=== PATIENT | female | born 1950 | race Caucasian/White ===

== ENCOUNTER 2016-06-11 07:37 | Emergency (ER) | payer OTHER ==
[~2016-06-11] VITALS: Wt 78.0 kg
[~2016-06-11 07:37] MED LIST: BACTROBAN OINT22 GM PO; FAMOTIDINE20 M1 PO; NORCO 5-325 TA1 EACH PO; NOVOLOG10 ML SC; SILVADENE,SSD C50 GM PO; TORADOL10 MG PO; VICTOZA6 MG/ML SC
[2016-06-11] MEDS ORDERED: IBU800 M1 PO (07:44)
[2016-06-11] MEDS ORDERED: LANTUS100 U/ML SC (07:45)
[2016-06-11] MEDS ORDERED: CYCLOBENZAPRINE10 MG PO (07:46)
[2016-06-11] MEDS ORDERED: PRAVASTATIN SOD40 MG PO (07:46)
[2016-06-11] MEDS ORDERED: VITAMIN D5000 I3 PO (07:46)
[2016-06-11 08:29] LABS: BASO % 0.3 % (0.0-1.0); EOS % 0.3 % (1.0-4.0); HEMATOCRIT 38.5 % (37.0-47.0); HEMOGLOBIN 13.4 g/dl (12.0-16.0); LYMPH # 0.8 10*3/uL (1.3-4.4); LYMPH % 10.5 % (27.0-41.0); MEAN CELL VOLUME 91.9 fl (81.0-99.0); MEAN CORPUSCULAR HGB CONC 34.8 g/dl (33.0-37.0); MEAN PLATELET VOLUME 10.7 fl (9.6-12.3); MONO # 0.3 10*3/uL (0.1-1.0); MONO % 3.7 % (3.0-9.0); NEUT # 6.4 10*3/uL (2.3-7.9); NEUT % 84.8 % (47.0-73.0); PLATELET COUNT AUTOMATED 141 10*3/uL (130-400); RED BLOOD COUNT 4.19 10*6/uL (4.10-5.10); RED CELL DISTRI WIDTH 12.3 % (0-14.5); WHITE BLOOD COUNT 7.5 10*3/uL (4.8-10.8)
[2016-06-11 08:41] LABS: BUN 18 mg/dl (7-24); CARBON DIOXIDE 28 mmol/L (21-32); CHLORIDE 106 mmol/L (98-107); EST GLOM FILT AFRICAN AMERICAN > 60 ml/min; GLUCOSE 164 mg/dL (65-99); POTASSIUM 3.9 mmol/L (3.5-5.1); SODIUM 143 mmol/L (136-145)
[2016-06-11 09:03] LABS: BILIRUBIN NEGATIVE (NEGATIVE); BLOOD NEGATIVE (NEGATIVE); CLARITY CLEAR (CLEAR); COLOR YELLOW (YELLOW); GLUCOSE NEGATIVE (NEGATIVE); KETONE TRACE (NEGATIVE); LEUKO ESTERASE 1+ (NEGATIVE); NITRITE NEGATIVE (NEGATIVE); PROTEIN NEGATIVE (NEGATIVE); SPECIFIC GRAVITY 1.025 (1.005-1.030); UROBILINOGEN 0.2 E.U./dl (0.2-1.0)
[2016-06-11 09:12] LABS: BACTERIA 1+; URINE REFLEX COMMENT YES (NO); WBC 16-20 wbc/hpf (0-5)
[2016-06-11] MEDS ORDERED: Meclizine25 MG PO (09:32)
[2016-06-11] MEDS ORDERED: LEVAQUIN250 M1 PO (09:32)
== END 2016-06-11 09:36 | disposition home or self-care (01) ==
LOC: ED 07:37
PROVIDERS: Emergency Medicine
DX: N39.0 Urinary tract infection, site not specified (principal); H83.09 Labyrinthitis, unspecified ear; E11.9 Type 2 diabetes mellitus without complications; Z90.710 Acquired absence of both cervix and uterus; Z98.890 Other specified postprocedural states; Z88.1 Allergy status to other antibiotic agents

== ENCOUNTER → 2016-06-16 | Outpatient (CLI) | payer OTHER ==
[~2016-06-16] MED LIST changes: +CYCLOBENZAPRINE10 MG PO; +IBU800 M1 PO; +LANTUS100 U/ML SC; +LEVAQUIN250 M1 PO; +Meclizine25 MG PO; +PRAVASTATIN SOD40 MG PO; +VITAMIN D5000 I3 PO
== END | disposition home or self-care (01) ==
LOC: MRI 08:48
DX: M75.81 Other shoulder lesions, right shoulder (principal); R20.2 Paresthesia of skin

== ENCOUNTER → 2016-10-29 | Outpatient (CLI) | payer OTHER | END | disposition home or self-care (01) | LOC: RAD 09:16 | DX: J32.0 Chronic maxillary sinusitis (principal); J34.89 Other specified disorders of nose and nasal sinuses ==

== ENCOUNTER → 2016-12-31 | Outpatient (CLI) | payer OTHER ==
[~2016-12-31] MED LIST changes: +24 HOUR ALLER15.8 ML NAS; +LANTUS SOL100 UNIT/1 SC; -LANTUS100 U/ML SC; +LOSARTAN POTASS25 M1 PO; +MELOXICAM15 MG PO
[2016-12-31 18:22] LABS: BASO % 0.6 % (0.0-1.0); EOS # 0.2 10*3/uL (0.0-0.4); EOS % 3.1 % (1.0-4.0); HEMOGLOBIN 12.9 g/dl (12.0-16.0); LYMPH % 30.9 % (27.0-41.0); MEAN CELL VOLUME 92.3 fl (81.0-99.0); MEAN CORPUSCULAR HGB 32.2 pg (27.0-31.0); MEAN CORPUSCULAR HGB CONC 34.9 g/dl (33.0-37.0); MEAN PLATELET VOLUME 11.4 fl (9.6-12.3); MONO # 0.6 10*3/uL (0.1-1.0); MONO % 8.6 % (3.0-9.0); NEUT # 3.7 10*3/uL (2.3-7.9); NEUT % 56.3 % (47.0-73.0); PLATELET COUNT AUTOMATED 142 10*3/uL (130-400); RED BLOOD COUNT 4.01 10*6/uL (4.10-5.10); RED CELL DISTRI WIDTH 12.4 % (0-14.5); WHITE BLOOD COUNT 6.5 10*3/uL (4.8-10.8)
[2016-12-31 18:39] LABS: HEMOGLOBIN A1c 6.3 % (4.8-5.6)
[2016-12-31 18:41] LABS: ALBUMIN 3.6 gm/dl (3.1-4.5); ALKALINE PHOSPHATASE 102 U/L (45-117); BILIRUBIN, TOTAL 0.4 mg/dl (0.2-1.0); BUN 15 mg/dl (7-24); CARBON DIOXIDE 27 mmol/L (21-32); CHLORIDE 108 mmol/L (98-107); EST GLOM FILT AFRICAN AMERICAN > 60 ml/min; GLUCOSE 112 mg/dL (65-99); POTASSIUM 3.5 mmol/L (3.5-5.1); SGOT/AST 29 IU/L (3-35); SGPT/ALT 45 U/L (12-78); SODIUM 142 mmol/L (136-145); TOTAL PROTEIN 6.3 gm/dL (6.4-8.2)
== END | disposition home or self-care (01) ==
LOC: LAB 10:11
PROVIDERS: Orthopaedic Surgery
DX: Z01.818 Encounter for other preprocedural examination (principal); M75.101 Unspecified rotator cuff tear or rupture of right shoulder, not specified as traumatic; M19.011 Primary osteoarthritis, right shoulder; M25.811 Other specified joint disorders, right shoulder; I10 Essential (primary) hypertension; E11.9 Type 2 diabetes mellitus without complications

== ENCOUNTER → 2017-01-06 | Day surgery (SDC) | payer OTHER ==
[2017-01-06] VITALS (11 sets, daily range): BP systolic 111–148; BP diastolic 48–85
[~2017-01-06] VITALS: Ht 162.5 cm; Wt 81.6 kg
[~2017-01-06] MED LIST changes: +Percocet 325 MG1 TAB PO; +ZOFRAN4 MG PO
--- NOTE | ~2017-01-06 | O ---
[place], [place] OPERATIVE NOTE NAME: RUMA CORREA [facility] #: [id number] UNIT #: [id number] ROOM: DOCTOR: RAQUEL WAY DO BIRTHDATE: [birth year] DOS: 01/06/2017 PREOPERATIVE DIAGNOSES: Right shoulder rotator cuff tear with acromioclavicular arthritis and impingement. POSTOPERATIVE DIAGNOSES: Right shoulder rotator cuff tear with acromioclavicular arthritis and impingement with calcific tendinitis. OPERATIVE PROCEDURE: Right shoulder rotator cuff repair with subacromial decompression and Paulo procedure. SURGEON: Raquel Way DO. COMMUNITY DIRECTOR: Nick Galvez. INDICATIONS: The patient is an 66-year-old female with a history of right shoulder pain and disability, which has been unrelieved with conservative care. Physical exam and MRI indicated rotator cuff tear with AC degenerative changes and impingement. The risks and benefits of the procedure were explained to the patient preoperatively. Preoperative labs and x-rays were obtained. PROCEDURE IN DETAIL: The right arm was marked in the holding area. The patient was brought to the operative suite. General anesthetic with endotracheal intubation was performed. The patient was placed in a modified beach chair position utilizing the shoulder table. The patient received Ancef 2 grams IV piggyback. Timeout was performed. The right shoulder was prepped and draped in the usual orthopedic fashion. The landmarks were identified and marked with a marking pen. A diagonal incision was marked between the anterior acromion and the coracoid process. The area was injected with Marcaine 0.5% with epinephrine. The incision was made sharply with a scalpel. Subcutaneous tissue was spread down to the deltoid fascia. Deltoid fascia was divided along its fibers and retracted. The deltoid was released from the anterior acromion. Coracoacromial ligament was incised. The acromioclavicular joint was identified. There was noted to be significant calcification within this region. The distal clavicle was cleared of soft tissue. The oscillating saw was used to remove the distal 1 cm of the distal clavicle. The anterior acromion was removed using an osteotome. The undersurface was smoothed using a handheld rasp. The area was copiously irrigated with normal saline. The deltoid and subacromial bursa was debrided. The full thickness tear was noted in the supraspinatus tendon. There was noted to be calcification within this area. This was debrided with the rongeur. The area was copiously irrigated with normal saline. The rotator cuff was repaired with a scorpion suture passer, creating an inverted mattress suture at the level of the tear and a BioComposite SwiveLock for attachment. This was performed using the punch, followed by manual placement of the SwiveLock. The sutures were cut with a scalpel. The repair was reinforced with #2 Orthocord. The cuff repair was found to be adequate. The area was evaluated for any further bony [place], [place] OPERATIVE NOTE NAME: RUMA CORREA UNIT #: [id number] ROOM: DOCTOR: RAQUEL WAY DO BIRTHDATE: [birth year] debris and further rasping was performed of the distal clavicle and acromion. The area was copiously irrigated with normal saline. The deltoid was repaired and returned to the acromial region utilizing #1 Ethibond, which was placed through the anterior acromion as well. The acromioclavicular joint was repaired using 0 Ethibond. The longitudinal division within the deltoid was repaired using 2-0 Vicryl, repairing the fascial layer. A 2-0 Vicryl was used to close the subcutaneous layer, followed by skin kvaon. The incision and the joint were then injected with Marcaine 0.5% with epinephrine. Xeroform, 4 x 4s, ABD and Tegaderm were used to complete the dressing and the patient was placed in a sling with an abduction pillow. The anesthetic was reversed. The patient was extubated and taken to the recovery room in satisfactory condition. Sponge and needle count correct. ESTIMATED BLOOD LOSS: 50 mL. DRAINS: None. PACKING: None. COMPLICATIONS: None. SPECIMENS: The anterior acromion and distal clavicle with calcified soft tissue. FINDINGS: Right shoulder rotator cuff tear, full thickness supraspinatus, subacromial impingement, acromioclavicular joint arthritis, calcification of the soft tissues. RAQUEL MEAGHAN, DO CM:OPRECORD:OPERATIVE NOTE [id number] DO 01/06/17 1213 interface
== END | disposition home or self-care (01) ==
LOC: SDC 12-14 10:15
DX: M75.121 Complete rotator cuff tear or rupture of right shoulder, not specified as traumatic (principal); M19.011 Primary osteoarthritis, right shoulder; M75.41 Impingement syndrome of right shoulder; E11.9 Type 2 diabetes mellitus without complications; I10 Essential (primary) hypertension; Z90.710 Acquired absence of both cervix and uterus; Z98.890 Other specified postprocedural states; Z83.3 Family history of diabetes mellitus; Z82.49 Family history of ischemic heart disease and other diseases of the circulatory system; J45.909 Unspecified asthma, uncomplicated; Z79.4 Long term (current) use of insulin; Z79.899 Other long term (current) drug therapy; K21.9 Gastro-esophageal reflux disease without esophagitis

== ENCOUNTER → 2017-04-11 | Outpatient (CLI) | payer OTHER | END | disposition home or self-care (01) | LOC: ORTHO 02:47 | DX: M19.012 Primary osteoarthritis, left shoulder (principal); M16.12 Unilateral primary osteoarthritis, left hip ==

== ENCOUNTER → 2017-08-31 | Outpatient (CLI) | payer OTHER | END | disposition home or self-care (01) | LOC: ORTHO 00:22 | DX: M17.0 Bilateral primary osteoarthritis of knee (principal); M25.762 Osteophyte, left knee; M25.761 Osteophyte, right knee ==

== ENCOUNTER → 2017-10-24 | Outpatient (CLI) | payer OTHER | LOC: US 13:36 | DX: I65.23 Occlusion and stenosis of bilateral carotid arteries (principal); I10 Essential (primary) hypertension; E11.9 Type 2 diabetes mellitus without complications ==

== ENCOUNTER 2019-04-05 12:26 | Inpatient (IN) | payer OTHER, MEDICAID ==
[~2019-04-05] VITALS: Ht 162.6 cm; Wt 92.7 kg
--- NOTE | ~2019-04-05 | ST ---
[place], [place] EXERCISE STRESS TEST REPORT NAME: RUMA CORREA [facility] #: [id number] UNIT #: [id number] ROOM: 503 DOCTOR: MAI PAINTER MD BIRTHDATE: [birth year] DOS: 04/06/2019 LEXISCAN STRESS EKG REFERRING PHYSICIAN: Dr. Pelaez. INDICATION: Chest pain. The patient underwent standard protocol Lexiscan stress EKG. Baseline EKG is normal sinus rhythm, nonspecific ST-T wave changes, heart rate at rest was 93 with a blood pressure 130/68. The patient's peak heart was 114 with a blood pressure 130/76. The patient had no chest pain, no ischemic changes, no arrhythmias. SUMMARY OF FINDINGS: Unremarkable Lexiscan stress EKG. Please see separate report for perfusion scan imaging results. MAI PAINTER MD CM:STRESS:EXERCISE STRESS TEST REPORT [id number] MAI PAINTER MD
--- NOTE | ~2019-04-05 | EKG ---
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
[~2019-04-05 12:26] MED LIST changes: +VICTOZA 2-0.6 MG/0.1 SC; -VICTOZA6 MG/ML SC
[2019-04-05 12:29] VITALS: BP 160/86
--- NOTE | 2019-04-05 12:34 | NUR ---
PT NOW REPORTS SHE HAS SOME SUBSTERNAL CHEST PAIN WIT SOME SHORTNESS OF BREATH WILL PUT IN FOR ACS ORDERS
--- NOTE | 2019-04-05 12:34 | NUR ---
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 ALSO, PT DID VOMIT ONCE AND HAS HAD DIAPHORESIS, CHECKED HER GLUCOSE AND FOUND IT OVER 400 JUST PRIOR TO ARRIVAL TO [facility].
[2019-04-05 12:54] VITALS: BP 164/73
[2019-04-05 13:03] LABS: BASO % 0.2 % (0.0-1.0); EOS # 0.2 10*3/uL (0.0-0.4); EOS % 1.6 % (1.0-4.0); HEMATOCRIT 43.2 % (37.0-47.0); HEMOGLOBIN 15.2 g/dl (12.0-16.0); LYMPH # 1.7 10*3/uL (1.3-4.4); LYMPH % 17.4 % (27.0-41.0); MEAN CELL VOLUME 93.5 fl (81.0-99.0); MEAN CORPUSCULAR HGB 32.9 pg (27.0-31.0); MEAN CORPUSCULAR HGB CONC 35.2 g/dl (33.0-37.0); MONO # 0.6 10*3/uL (0.1-1.0); MONO % 6.4 % (3.0-9.0); NEUT % 73.5 % (47.0-73.0); PLATELET COUNT AUTOMATED 153 10*3/uL (130-400); RED BLOOD COUNT 4.62 10*6/uL (4.10-5.10); RED CELL DISTRI WIDTH 12.8 % (0-14.5); WHITE BLOOD COUNT 9.5 10*3/uL (4.8-10.8)
[2019-04-05 13:13] LABS: ACT PARTIAL THROMBO TIME 24.3 SECONDS (20.0-32.1); INTERNATIONAL NORM RATIO 0.9 (2.0-3.5)
[2019-04-05 13:24] LABS: ALBUMIN 3.7 gm/dl (3.1-4.5); ALKALINE PHOSPHATASE 130 U/L (45-117); BUN 15 mg/dl (7-24); CHLORIDE 104 mmol/L (98-107); CREATININE 0.65 mg/dL (0.55-1.02); LIPASE 96 U/L (73-393); POTASSIUM 3.9 mmol/L (3.5-5.1); SGOT/AST 33 IU/L (3-35); SGPT/ALT 67 U/L (12-78); SODIUM 137 mmol/L (136-145); TOTAL PROTEIN 6.9 gm/dL (6.4-8.2)
[2019-04-05 13:27] LABS: TROPONIN I < 0.015 ng/ml (<0.045)
[2019-04-05 13:51] LABS: BILIRUBIN NEGATIVE (NEGATIVE); BLOOD NEGATIVE (NEGATIVE); CLARITY CLEAR (CLEAR); COLOR YELLOW (YELLOW); GLUCOSE NEGATIVE (NEGATIVE); KETONE TRACE (NEGATIVE); LEUKO ESTERASE TRACE (NEGATIVE); NITRITE NEGATIVE (NEGATIVE); SPECIFIC GRAVITY 1.015 (1.005-1.030); UROBILINOGEN 0.2 E.U./dl (0.2-1.0)
[2019-04-05 13:59] LABS: BACTERIA TRACE
--- NOTE | 2019-04-05 14:15 | NUR ---
BED ASSIGNED, AWAITING OPPORTUNITY TO PROVIDE NURSE REPORT TO FLOOR.
--- NOTE | 2019-04-05 14:45 | NUR ---
A 68, admitted to 5E, under the services of WES Jimenez DO with a diagnosis of CHEST PAIN . Chief complaint is CHEST PAIN . Patient arrived via stretcher from ER. Monitor applied. Initial assessment completed. Vital signs taken and recorded. WES JIMENEZ DO notified of admission to the unit. Orders received. See assessment for past medical history, medications and allergies. Patient and/or family oriented to unit. [facility] visitation policy reviewed. Clothing/patient valuable form completed. ZAHRA WINTERS
[2019-04-05 14:54] VITALS: BP 152/82
[2019-04-05] MEDS ORDERED: CELEBREX100 MG PO (15:34)
--- NOTE | 2019-04-05 15:59 | NUR ---
[facility] CALLED TO THE OFFICE
[2019-04-05 16:00] VITALS: BP 164/92
[2019-04-05 17:00] VITALS: BP 158/84
--- NOTE | 2019-04-05 19:52 | NUR ---
24 HR chart check completed.
[2019-04-05 20:00] VITALS: BP 154/78
--- NOTE | 2019-04-05 20:30 | NUR ---
RESTING IN BED WITH NO ACUTE DISTRESS NOTED. RESPIRATIONS EASY. LUNGS DIMINISHED, CLEAR. PULSE OX 100% RA. CALL LIGHT WITHIN REACH. NO VOICED COMPLAINTS.
[2019-04-05] MEDS ORDERED: BASAG SOL SC (20:37)
[2019-04-05] MEDS ORDERED: GOOD NEIGHBOR L10 MG PO (20:39)
[2019-04-05] MEDS ORDERED: HUMALOG100 UNIT/1 SQ (20:39)
[2019-04-05] MEDS ORDERED: VITAMIN D31000 UNIT PO (20:40)
[2019-04-05] MEDS ORDERED: PRAVASTATIN SOD80 MG PO (20:41)
[2019-04-05] MEDS ORDERED: PROAIR RESPICL90 MCG INH (20:42)
--- NOTE | 2019-04-05 21:07 | NUR ---
DR WHITTEN CONTACTED AND INFORMED THAT MED REC WAS NOT UPDATED UPON ADMISSION PER PATIENT. MEDS REVIEWED AND UP TO DATE IN COMPUTER.
[2019-04-05] MEDS ORDERED: METOPROLOL SUCC25 M2 PO (22:07)
[2019-04-06] VITALS: BP 144/68
--- NOTE | 2019-04-06 | NUR ---
SLEEPING. NO DISTRESS NOTED. RESPIRATIONS EASY. VSS. CALL LIGHT WITHIN REACH
--- NOTE | 2019-04-06 05:25 | NUR ---
RUMA CORREA [id number] Please refer to the physician's history and physical for past medical history, comorbid conditions, and allergies. Diagnosis: DYSPNEA CHEST PAIN R/O AC M.I. MAUSEA VOMITING Junior Score: 19,LOW OR NO RISK WOUND DESCRIPTIONS: Wound Number: 1 Location of the wound: left upper arm Type of wound: surgical Thickness: Partial Size: 0.4cm x 1.8cm x <0.1cm Tunneling: none Undermining: none Sinus Tract: none Presence of Exudate: none Amount: None Color: Red Odor: None Periwound Skin Appearance: Normal Wound edges: approximated Pain (associated with wound): none at time of assessment How does patient state this happened? pt stated she had surgery a couple months ago and had a biospy done it was froze then they had to refreeze the area since they didn't get it all she stated this was done at dermatology in [facility]. she stated she has a follow up appointment but is unsure when the date is she has it written done at home Surface the patient is resting on: Isoflex SKIN PREVENTION RECOMMENDATION: 1. Pressure redistribution support surface as appropriate 2. Elevate heels 3. Remove boots/TEDS every shift and reapply 4. Head of bed 30 degrees as tolerated 5. Assess nutrition and hydration 6. Manage moisture 7. Avoid the use of containment devices while in bed 8. Use absorptive products on surfaces limit layers of linens on bed 9. Turn and reposition every 1-2 hours in bed and every 1 hour in chair as tolerated 10. Weight shifts every 15 minutes while up in chair 11. Offloading with pillows or device to keep heels elevated off bed 12. Monitor skin at least every shift 13. Inspect under medical devices twice a day
--- NOTE | 2019-04-06 06:00 | NUR ---
SLEPT THROUGHOUT NIGHT WITH NO DISTRESS NOTED. RESPIRATIONS EASY. CALL LIGHT WITHIN REACH. NO VOICED COMPLAINTS THIS SHIFT
[2019-04-06 06:27] LABS: BASO % 0.2 % (0.0-1.0); EOS # 0.2 10*3/uL (0.0-0.4); EOS % 3.4 % (1.0-4.0); HEMATOCRIT 40.4 % (37.0-47.0); HEMOGLOBIN 13.9 g/dl (12.0-16.0); LYMPH # 1.7 10*3/uL (1.3-4.4); LYMPH % 25.2 % (27.0-41.0); MEAN CELL VOLUME 94.4 fl (81.0-99.0); MEAN CORPUSCULAR HGB 32.5 pg (27.0-31.0); MEAN CORPUSCULAR HGB CONC 34.4 g/dl (33.0-37.0); MEAN PLATELET VOLUME 10.9 fl (9.6-12.3); MONO # 0.5 10*3/uL (0.1-1.0); MONO % 7.8 % (3.0-9.0); NEUT # 4.1 10*3/uL (2.3-7.9); NEUT % 62.6 % (47.0-73.0); PLATELET COUNT AUTOMATED 153 10*3/uL (130-400); RED BLOOD COUNT 4.28 10*6/uL (4.10-5.10); WHITE BLOOD COUNT 6.5 10*3/uL (4.8-10.8)
[2019-04-06 06:59] LABS: ALBUMIN 3.4 gm/dl (3.1-4.5); ALKALINE PHOSPHATASE 129 U/L (45-117); BUN 11 mg/dl (7-24); CHLORIDE 104 mmol/L (98-107); CHOLESTEROL 163 mg/dL (<200); CREATININE 0.66 mg/dL (0.55-1.02); FREE T4 1.02 ng/dl (0.76-1.46); HDL CHOLESTEROL 32 mg/dl (40-60); LDL CHOLESTEROL 89 mg/dL (9-159); PHOSPHOROUS 3.4 mg/dL (2.5-4.9); POTASSIUM 3.8 mmol/L (3.5-5.1); SGOT/AST 28 IU/L (3-35); SGPT/ALT 60 U/L (12-78); SODIUM 140 mmol/L (136-145); TOTAL PROTEIN 6.3 gm/dL (6.4-8.2); TRIGLYCERIDES 208 mg/dl (<150); VLDL CHOLESTEROL 42 mg/dL (6-40)
[2019-04-06 07:23] LABS: VITAMIN D, 25-HYDROXY 41.4 ng/mL (30-100)
--- NOTE | 2019-04-06 08:00 | NUR ---
SITTING UP AT SIDE OF BED. RESP-EASY AND REGULAR. NO C/O AT THIS TIME. CALL LIGHT IN REACH. SEE SHIFT ASSESSMENT.
--- NOTE | 2019-04-06 09:00 | NUR ---
E[employer] Refrigerator Preparer in to talk to patient. Patient states lives at home with alone. There are few steps in the home. Physician: adalgisa sarabia [facility]acy: [facility] Home health services: none Patient's level of ADLs: INDEPENDENT Patient has working utilities: all working DME: none Follow-up physician's appointment after d/c: will be made by hospitalist nurse director upon discharge Does patient want to access PORTAL?: no Discharge plan discussed with patient, she lives at home, is independent in adls and ambualtion, she states she will return home when medically stable and denies any home needs. HAMILTON VARGAS
--- NOTE | 2019-04-06 10:00 | NUR ---
RESTING IN BED. RESP-EASY AND REGULAR. NO C/O AT THIS TIME. CALL LIGHT IN REACH.
--- NOTE | 2019-04-06 11:36 | NUR ---
PT ESCORTED TO CARDIAC REHAB FOR STRESS TEST VIA WHEELCHAIR.
[2019-04-06 12:00] VITALS: BP 155/83
--- NOTE | 2019-04-06 12:55 | NUR ---
INFORMED SIGNED CONSENT OBTAINED FOR LEXISCAN STRESS TEST WITH DR PAINTER. RESTING EKG NSR HR 93 BP 130/68. PULSE OX 97% LUNGS CLEAR. PT COMPLETED ONE MINUTE OF A LEXISCAN PROTOCOL WITH PT RECEIVING LEXISCAN 0.4MG IV OVER [address]RHYTMI[address] OR [address] CHANGES. PT HAD NO SYMPOTOMS WITH INJECTION. PT IN STABLE CONDITION, AWAITING NUCLEAR IMAGES.
--- NOTE | 2019-04-06 13:20 | NUR ---
PT STILL OFF FLOOR IN CARDIAC REHAB.
--- NOTE | 2019-04-06 15:48 | NUR ---
PT SITTING UP AT SIDE OF BED. RESP-EASY AND REGULAR. [id number]-[id number], SEE EMAR. PT JUST ATE. NO C/O AT THIS TIME. CALL LIGHT IN REACH.
--- NOTE | 2019-04-06 16:31 | NUR ---
PT AMBULATORY OFF THE FLOOR FOR DISCHARGE WITH VISITOR AT HER SIDE. Discharge instructions reviewed with patient/family. Patient receptive and verbalizes understanding. Follow-up care arranged. Written instructions given to patient/family. HEPLOCK REMOVED 2X2 APPLIED. MONITOR REMOVED. ZACKERY PRATHER
== END 2019-04-06 16:31 | disposition home or self-care (01) | DRG 206 ==
LOC: ED 12:26 → 5E 13:59 → EDHOLD 13:59 → 5E 14:18
PROVIDERS: Emergency Medicine; Internal Medicine; ADMIT Internal Medicine
PROC: 4A02XM4 Measurement of Cardiac Total Activity, External Approach (ICD-10-PCS; principal; 2019-04-06)
PROC: 3E073KZ Introduction of Other Diagnostic Substance into Coronary Artery, Percutaneous Approach (ICD-10-PCS; principal; 2019-04-06)
DX: M94.0 Chondrocostal junction syndrome [Tietze] (principal); E46 Unspecified protein-calorie malnutrition; J45.909 Unspecified asthma, uncomplicated; R74.0 Nonspecific elevation of levels of transaminase and lactic acid dehydrogenase [LDH]; E78.5 Hyperlipidemia, unspecified; I10 Essential (primary) hypertension; E78.1 Pure hyperglyceridemia; E11.65 Type 2 diabetes mellitus with hyperglycemia; Z90.49 Acquired absence of other specified parts of digestive tract; Z79.4 Long term (current) use of insulin; Z90.710 Acquired absence of both cervix and uterus; Z88.1 Allergy status to other antibiotic agents; Z68.34 Body mass index [BMI] 34.0-34.9, adult

== ENCOUNTER → 2019-06-06 | Outpatient (CLI) | payer OTHER, MEDICAID ==
[~2019-06-06] MED LIST changes: +BASAG SOL SC; +CELEBREX100 MG PO; +GOOD NEIGHBOR L10 MG PO; +HUMALOG100 UNIT/1 SQ; +METOPROLOL SUCC25 M2 PO; +PRAVASTATIN SOD80 MG PO; +PROAIR RESPICL90 MCG INH; +VITAMIN D31000 UNIT PO
== END | disposition home or self-care (01) ==
LOC: CT 00:01
DX: K76.0 Fatty (change of) liver, not elsewhere classified (principal); K43.9 Ventral hernia without obstruction or gangrene; R19.8 Other specified symptoms and signs involving the digestive system and abdomen; R11.2 Nausea with vomiting, unspecified; R10.9 Unspecified abdominal pain; Z90.710 Acquired absence of both cervix and uterus

== ENCOUNTER 2019-10-10 22:34 | Emergency (ER) | payer OTHER, MEDICAID ==
[~2019-10-10] VITALS: Ht 162.5 cm; Wt 77.2 kg
[2019-10-10 23:36] LABS: BILIRUBIN NEGATIVE (NEGATIVE); CLARITY SL CLOUDY (CLEAR); COLOR YELLOW (YELLOW); GLUCOSE 2+ (NEGATIVE); KETONE NEGATIVE (NEGATIVE); SPECIFIC GRAVITY 1.015 (1.005-1.030)
[2019-10-10 23:37] LABS: BLOOD TRACE-INTACT (NEGATIVE); NITRITE NEGATIVE (NEGATIVE); UROBILINOGEN 0.2 E.U./dl (0.2-1.0)
[2019-10-10 23:42] LABS: BASO % 0.2 % (0.0-1.0); EOS # 0.1 10*3/uL (0.0-0.4); EOS % 0.4 % (1.0-4.0); HEMATOCRIT 43.9 % (37.0-47.0); LYMPH # 0.9 10*3/uL (1.3-4.4); LYMPH % 6.9 % (27.0-41.0); MEAN CELL VOLUME 93.8 fl (81.0-99.0); MEAN CORPUSCULAR HGB 33.3 pg (27.0-31.0); MEAN CORPUSCULAR HGB CONC 35.5 g/dl (33.0-37.0); MEAN PLATELET VOLUME 11.4 fl (9.6-12.3); MONO # 0.7 10*3/uL (0.1-1.0); MONO % 5.4 % (3.0-9.0); NEUT # 11.2 10*3/uL (2.3-7.9); NEUT % 86.7 % (47.0-73.0); PLATELET COUNT AUTOMATED 166 10*3/uL (130-400); RED BLOOD COUNT 4.68 10*6/uL (4.10-5.10); RED CELL DISTRI WIDTH 12.4 % (0-14.5)
[2019-10-10 23:54] LABS: ACT PARTIAL THROMBO TIME 25.9 SECONDS (20.0-32.1); INTERNATIONAL NORM RATIO 0.9 (2.0-3.5)
[2019-10-11] LABS: ALBUMIN 3.8 gm/dl (3.1-4.5); ALKALINE PHOSPHATASE 173 U/L (45-117); BUN 30 mg/dl (7-24); CHLORIDE 106 mmol/L (98-107); CREATININE 0.72 mg/dL (0.55-1.02); LEUKO ESTERASE NEGATIVE (NEGATIVE); POTASSIUM 3.9 mmol/L (3.5-5.1); SGOT/AST 212 IU/L (3-35); SGPT/ALT 131 U/L (12-78); SODIUM 139 mmol/L (136-145); TOTAL PROTEIN 6.9 gm/dL (6.4-8.2)
[2019-10-11 00:02] LABS: BACTERIA 3+
[2019-10-11 00:06] LABS: TROPONIN I < 0.015 ng/ml (<0.045)
== END 2019-10-11 03:30 | disposition short-term general hospital (02) ==
LOC: ED 22:34
PROVIDERS: Physician Assistant
DX: S72.092A Other fracture of head and neck of left femur, initial encounter for closed fracture (principal); R42 Dizziness and giddiness; I10 Essential (primary) hypertension; E11.9 Type 2 diabetes mellitus without complications; J45.909 Unspecified asthma, uncomplicated; K21.9 Gastro-esophageal reflux disease without esophagitis; Z88.1 Allergy status to other antibiotic agents; Z79.899 Other long term (current) drug therapy; Z79.4 Long term (current) use of insulin; W18.39XA Other fall on same level, initial encounter; Y93.89 Activity, other specified; Y92.89 Other specified places as the place of occurrence of the external cause; Y99.8 Other external cause status

== ENCOUNTER 2019-11-15 17:18 | Inpatient (IN) | payer OTHER, MEDICAID ==
[~2019-11-15] VITALS: Ht 162.5 cm; Wt 69.5 kg
[~2019-11-15 17:18] MED LIST changes: -ELIQUIS5 M2 PO; -JARDIANCE25 MG PO; -LANTUS SOL100 UNIT/1 SG; -METFORMIN XR500 MG PO; -MIRALAX119 GM PO; -REGLAN5 MG PO
[2019-11-15 17:25] VITALS: BP 152/77
[2019-11-15 18:07] VITALS: BP 153/67
[2019-11-15 18:10] LABS: BASO % 0.4 % (0.0-1.0); EOS # 0.1 10*3/uL (0.0-0.4); EOS % 1.2 % (1.0-4.0); HEMATOCRIT 44.4 % (37.0-47.0); LYMPH # 1.7 10*3/uL (1.3-4.4); LYMPH % 22.5 % (27.0-41.0); MEAN CELL VOLUME 95.3 fl (81.0-99.0); MEAN CORPUSCULAR HGB 32.8 pg (27.0-31.0); MEAN CORPUSCULAR HGB CONC 34.5 g/dl (33.0-37.0); MONO # 0.7 10*3/uL (0.1-1.0); NEUT % 66.6 % (47.0-73.0); PLATELET COUNT AUTOMATED 161 10*3/uL (130-400); RED BLOOD COUNT 4.66 10*6/uL (4.10-5.10); RED CELL DISTRI WIDTH 13.2 % (0-14.5); WHITE BLOOD COUNT 7.5 10*3/uL (4.8-10.8)
[2019-11-15 18:21] LABS: ACT PARTIAL THROMBO TIME 26.2 SECONDS (20.0-32.1)
[2019-11-15 18:22] LABS: BUN 40 mg/dl (7-24); CHLORIDE 106 mmol/L (98-107); CREATININE 0.66 mg/dL (0.55-1.02); POTASSIUM 3.9 mmol/L (3.5-5.1); SODIUM 139 mmol/L (136-145)
[2019-11-15 18:43] VITALS: BP 137/66
[2019-11-15] MEDS ORDERED: ELIQUIS5 M2 PO (19:08)
[2019-11-15 19:25] VITALS: BP 153/85
[2019-11-15 20:46] VITALS: BP 155/71
[2019-11-15] MEDS ORDERED: METFORMIN XR500 MG PO (21:53)
[2019-11-16] VITALS: BP 120/71
[2019-11-16 06:30] LABS: BASO % 0.8 % (0.0-1.0); EOS # 0.1 10*3/uL (0.0-0.4); EOS % 2.4 % (1.0-4.0); HEMATOCRIT 40.5 % (37.0-47.0); LYMPH # 1.6 10*3/uL (1.3-4.4); LYMPH % 30.6 % (27.0-41.0); MEAN CELL VOLUME 95.7 fl (81.0-99.0); MEAN CORPUSCULAR HGB 32.6 pg (27.0-31.0); MEAN CORPUSCULAR HGB CONC 34.1 g/dl (33.0-37.0); MEAN PLATELET VOLUME 11.1 fl (9.6-12.3); MONO # 0.6 10*3/uL (0.1-1.0); MONO % 11.8 % (3.0-9.0); NEUT # 2.9 10*3/uL (2.3-7.9); NEUT % 54.2 % (47.0-73.0); PLATELET COUNT AUTOMATED 146 10*3/uL (130-400); RED BLOOD COUNT 4.23 10*6/uL (4.10-5.10); WHITE BLOOD COUNT 5.3 10*3/uL (4.8-10.8)
[2019-11-16 06:47] LABS: CHLORIDE 109 mmol/L (98-107); CHOLESTEROL 149 mg/dL (<200); CREATININE 0.58 mg/dL (0.55-1.02); FREE T4 1.11 ng/dl (0.76-1.46); HDL CHOLESTEROL 34 mg/dl (40-60); LDL CHOLESTEROL 84 mg/dL (9-159); POTASSIUM 3.9 mmol/L (3.5-5.1); SODIUM 141 mmol/L (136-145); TRIGLYCERIDES 156 mg/dl (<150); VLDL CHOLESTEROL 31 mg/dL (6-40)
[2019-11-16 06:54] LABS: BUN 27 mg/dl (7-24)
[2019-11-16 08:00] VITALS: BP 131/73
[2019-11-16 09:17] LABS: VITAMIN D, 25-HYDROXY 47.4 ng/mL (30-100)
[2019-11-16] MEDS ORDERED: REGLAN5 MG PO (10:49)
[2019-11-16] MEDS ORDERED: JARDIANCE25 MG PO (11:01)
[2019-11-16] MEDS ORDERED: LANTUS SOL100 UNIT/1 SG (11:01)
[2019-11-16] MEDS ORDERED: MIRALAX119 GM PO (11:04)
[2019-11-16] MEDS ORDERED: NORCO 5-325 TA1 EACH PO (11:49)
[2019-11-16 12:00] VITALS: BP 127/69
== END 2019-11-16 13:11 | disposition home or self-care (01) | DRG 301 ==
LOC: ED 17:18 → EDHOLD 19:52 → 5E 19:52
PROVIDERS: Emergency Medicine; Internal Medicine; ADMIT Emergency Medicine
DX: I82.412 Acute embolism and thrombosis of left femoral vein (principal); E11.9 Type 2 diabetes mellitus without complications; I10 Essential (primary) hypertension; J45.909 Unspecified asthma, uncomplicated; E66.3 Overweight; E78.1 Pure hyperglyceridemia; E55.9 Vitamin D deficiency, unspecified; M19.91 Primary osteoarthritis, unspecified site; T78.40XS Allergy, unspecified, sequela; X58.XXXS Exposure to other specified factors, sequela; Z90.49 Acquired absence of other specified parts of digestive tract; Z90.710 Acquired absence of both cervix and uterus; Z82.49 Family history of ischemic heart disease and other diseases of the circulatory system; Z80.9 Family history of malignant neoplasm, unspecified; Z88.1 Allergy status to other antibiotic agents; Z79.01 Long term (current) use of anticoagulants; Z79.899 Other long term (current) drug therapy; Z79.4 Long term (current) use of insulin; Z68.26 Body mass index [BMI] 26.0-26.9, adult

== ENCOUNTER → 2019-11-15 | Outpatient (CLI) | payer OTHER, MEDICAID ==
[~2019-11-15] MED LIST changes: +ELIQUIS5 M2 PO; +JARDIANCE25 MG PO; +LANTUS SOL100 UNIT/1 SG; +METFORMIN XR500 MG PO; +MIRALAX119 GM PO; +REGLAN5 MG PO
== END | disposition home or self-care (01) ==
LOC: US 15:00
DX: M79.662 Pain in left lower leg (principal); Z98.890 Other specified postprocedural states

== ENCOUNTER → 2019-12-06 | Outpatient (CLI) | payer OTHER, MEDICAID ==
[~2019-12-06] MED LIST changes: +ELIQUIS5 M2 PO; +JARDIANCE25 MG PO; +LANTUS SOL100 UNIT/1 SG; +METFORMIN XR500 MG PO; +MIRALAX119 GM PO; +REGLAN5 MG PO
== END | disposition home or self-care (01) ==
LOC: US 10:00
DX: I73.9 Peripheral vascular disease, unspecified (principal); I87.2 Venous insufficiency (chronic) (peripheral); M79.89 Other specified soft tissue disorders; E11.8 Type 2 diabetes mellitus with unspecified complications

== ENCOUNTER → 2019-12-10 | Outpatient (CLI) | payer OTHER, MEDICAID | END | disposition home or self-care (01) | LOC: US 03:55 | DX: I82.412 Acute embolism and thrombosis of left femoral vein (principal); I73.9 Peripheral vascular disease, unspecified; I87.2 Venous insufficiency (chronic) (peripheral); M79.89 Other specified soft tissue disorders; E11.8 Type 2 diabetes mellitus with unspecified complications; M79.662 Pain in left lower leg ==